=== PATIENT | male | born 1965 | race African-American/Black ===

== ENCOUNTER 2019-04-20 09:44 | Inpatient (IN) | payer OTHER ==
[2019-04-20 10:37] VITALS: BMI 28.5
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
[2019-04-20] MEDS ORDERED: METHOCARBAMOL 500 MG TABLET PO PRN (13:00)
[2019-04-20] MEDS ORDERED: MENTHOL/PHENOL 1 EACH UD MM PRN (13:00)
[2019-04-20] MEDS ORDERED: MAG HYDROX/AL HYDROX/SIMETH 30 ML UNIT-DOSE CUP PO PRN (13:00)
[2019-04-20] MEDS ORDERED: ACETAMINOPHEN 325 MG TABLET (FP) PO PRN ×2 (13:00)
[2019-04-20] MEDS ORDERED: NICOTINE POLACRILEX 2 MG GUM BUC PRN (13:00)
[2019-04-20] MEDS ORDERED: IBUPROFEN 400 MG TABLET (FP) PO PRN (13:00)
[2019-04-20] MEDS ORDERED: BISMUTH SUBSALICYLATE 524 MG/30 ML UD PO PRN (13:00)
[2019-04-20] MEDS ORDERED: MAGNESIUM CITRATE 300 ML BOTTLE PO PRN (13:00)
[2019-04-20] MEDS ORDERED: hydrOXYzine PAMOATE 25 MG CAPSULE (FP) PO PRN (13:00)
[2019-04-20] MEDS ORDERED: MAGNESIUM HYDROX 2400MG/30ML ORAL SUSPENSION 30 ML CUP PO PRN (13:00)
--- NOTE | 2019-04-20 13:41 | PN ---
[facility] Progress Note Note: this 53 years old male with xanax dependence,heroin abused,suboxone in the past, needed inpatient detox,medical managed and valium regimen I personally present,review history,physical examination by dr.Harmanpree Diaz, plan of treatment and management,i agreed and concurred that this patient need inpatient detox, valium regimen
[2019-04-20] MEDS: diazePAM 5 MG TABLET PO SCH ×2 (14:20→21:51)
[2019-04-20 14:44] LABS: ALBUMIN 3.6 g/dl (3.4-5.0); BILIRUBIN,TOTAL 0.2 mg/dL (0.2-1); CALCIUM 9.2 mg/dL (8.5-10.1); CREATININE 1.1 mg/dL (0.55-1.3); POTASSIUM 4.1 mmol/L (3.5-5.1); TOT PROT 7.3 g/dl (6.4-8.2)
[2019-04-20 14:49] LABS: HEMATOCRIT 38.7 % (35.4-49); HEMOGLOBIN 12.9 GM/dL (11.7-16.9); MCH 29.7 pg (25.7-33.7); MCHC 33.2 g/dl (32.0-35.9); MEAN CELL VOLUME 89.4 fl (80-96); MEAN PLT VOLUME 8.9 fl (7.5-11.1); PLATELET COUNT 325 K/MM3 (134-434); RBC 4.33 M/mm3 (4.00-5.60); RDW 14.6 % (11.9-15.9); WHITE BLOOD COUNT 4.8 K/mm3 (4.0-10.0)
[2019-04-20] MEDS: THIAMINE HCL 100 MG TABLET (FP) PO SCH (21:51)
[2019-04-21] MEDS: diazePAM 5 MG TABLET PO SCH ×3 (05:22→22:22)
[2019-04-21] MEDS: diazePAM 5 MG TABLET PO PRN ×2 (08:42→16:53)
[2019-04-21] MEDS: PRENATAL VITAMINS W/ FOLIC ACID TABLET (FP) PO SCH (10:31)
--- NOTE | 2019-04-21 11:10 | PN ---
S CIWA - CIWA Score Nausea/Vomitin Muscle Tremors: 2 Anxiety: 2 Agitation: 2 Paroxysmal Sweats: 1-Minimal Palms Moist Orientation: 0-Oriented Tacttile Disturbances: 1-Very Mild Itch/Numbness Auditory Disturbances: 1-Very Mild Visual Disturbances: 0-None Headache: 2-Mild CIWA-Ar Total Score: 13 [facility] Progress Note (SOAP) Subjective: alert,irritable,anxious,interrupted sleep,tremor Objective: 04/21/19 11:09 Vital Signs Temperature 97.7 F 04/21/19 09:30 Pulse Rate 53 L 04/21/19 09:30 Respiratory Rate 16 04/21/19 09:30 Blood Pressure 132/86 04/21/19 09:30 O2 Sat by Pulse Oximetry (%) Laboratory Last Values WBC 4.8 K/mm3 (4.0-10.0) 04/20/19 13:10 RBC 4.33 M/mm3 (4.00-5.60) 04/20/19 13:10 Hgb 12.9 GM/dL (11.7-16.9) 04/20/19 13:10 Hct 38.7 % (35.4-49) 04/20/19 13:10 MCV 89.4 fl (80-96) 04/20/19 13:10 MCH 29.7 pg (25.7-33.7) 04/20/19 13:10 MCHC 33.2 g/dl (32.0-35.9) 04/20/19 13:10 RDW 14.6 % (11.9-15.9) 04/20/19 13:10 Plt Count 325 K/MM3 (134-434) D 04/20/19 13:10 MPV 8.9 fl (7.5-11.1) D 04/20/19 13:10 Sodium 141 mmol/L (136-145) 04/20/19 13:10 Potassium 4.1 mmol/L (3.5-5.1) 04/20/19 13:10 Chloride 106 mmol/L (98-107) 04/20/19 13:10 Carbon Dioxide 30 mmol/L (21-32) 04/20/19 13:10 Anion Gap 5 MMOL/L (8-16) L 04/20/19 13:10 BUN 9.0 mg/dL (7-18) 04/20/19 13:10 Creatinine 1.1 mg/dL (0.55-1.3) 04/20/19 13:10 Est GFR (CKD-EPI)AfAm 88.36 04/20/19 13:10 Est GFR (CKD-EPI)NonAf 76.24 04/20/19 13:10 Random Glucose 113 mg/dL (74-106) H 04/20/19 13:10 Calcium 9.2 mg/dL (8.5-10.1) 04/20/19 13:10 Total Bilirubin 0.2 mg/dL (0.2-1) 04/20/19 13:10 AST 28 U/L (15-37) 04/20/19 13:10 ALT 43 U/L (13-61) 04/20/19 13:10 Alkaline Phosphatase 102 U/L (45-117) 04/20/19 13:10 Total Protein 7.3 g/dl (6.4-8.2) 04/20/19 13:10 Albumin 3.6 g/dl (3.4-5.0) 04/20/19 13:10 RPR Titer Nonreactive (NONREACTIVE) 04/20/19 13:10 Assessment: 04/21/19 11:10 withdrawal symptom Plan: continue detox ,valium regimen,initial glucose is 113,fasting glucose in am
--- NOTE | 2019-04-21 14:35 | EKG ---
Test Reason : Blood Pressure : / mmHG Vent. Rate : 049 BPM Atrial Rate : 049 BPM P-R Int : 198 ms QRS Dur : 084 ms QT Int : 430 ms P-R-T Axes : 045 025 019 degrees QTc Int : 388 ms SINUS BRADYCARDIA NONSPECIFIC ST AND T WAVE ABNORMALITY ABNORMAL ECG NO PREVIOUS ECGS AVAILABLE Confirmed by Shady Madrigal ([id number]) on 04/21/2019 2:34:54 PM Referred By: Confirmed By:Shady Madrigal
[2019-04-21] MEDS: THIAMINE HCL 100 MG TABLET (FP) PO SCH (22:22)
[2019-04-21] MEDS: MELATONIN 5 MG TABLETS PO PRN (22:22)
[2019-04-22] MEDS: diazePAM 5 MG TABLET PO SCH ×2 (06:12→17:36)
[2019-04-22] MEDS: PRENATAL VITAMINS W/ FOLIC ACID TABLET (FP) PO SCH (11:17)
[2019-04-22] MEDS: diazePAM 5 MG TABLET PO PRN ×2 (11:18→22:33)
--- NOTE | 2019-04-22 13:27 | PN ---
[facility] Progress Note (SOAP) Subjective: pt admitted for metamphetamine and xanax use disorders- pt states he is feeling fine today and is scheduled to go home tomorrow. O: Vital Signs - 24 hr 04/21/19 04/21/19 04/21/19 13:48 17:40 21:19 Temperature 97.3 F L 97.5 F L 97.9 F Pulse Rate 61 55 L 56 L Respiratory 18 18 20 Rate Blood Pressure 141/86 124/82 130/89 04/22/19 04/22/19 04/22/19 00:30 03:30 06:20 Temperature 97.5 F L Pulse Rate 52 L Respiratory 18 18 16 Rate Blood Pressure 109/73 04/22/19 04/22/19 09:24 13:19 Temperature 97.7 F 98.2 F Pulse Rate 58 L 60 Respiratory 18 18 Rate Blood Pressure 132/85 133/85 Laboratory Tests 04/20/19 04/20/19 04/20/19 13:10 13:10 13:10 WBC 4.8 RBC 4.33 Hgb 12.9 Hct 38.7 MCV 89.4 MCH 29.7 MCHC 33.2 RDW 14.6 Plt Count 325 D MPV 8.9 D Sodium 141 Potassium 4.1 Chloride 106 Carbon Dioxide 30 Anion Gap 5 L BUN 9.0 Creatinine 1.1 Est GFR (CKD-EPI)AfAm 88.36 Est GFR (CKD-EPI)NonAf 76.24 Random Glucose 113 H Fasting Glucose Calcium 9.2 Total Bilirubin 0.2 AST 28 ALT 43 Alkaline Phosphatase 102 Total Protein 7.3 Albumin 3.6 RPR Titer TB (QFT) Incubation TB Test (QFT) Nil 0.03 TB Test (QFT) Mitogen >10.00 TB Test (QFT) Antigen 0.09 TB Test (QFT) Negative TB Positive Criteria 04/20/19 04/22/19 13:10 07:50 WBC RBC Hgb Hct MCV MCH MCHC RDW Plt Count MPV Sodium Potassium Chloride Carbon Dioxide Anion Gap BUN Creatinine Est GFR (CKD-EPI)AfAm Est GFR (CKD-EPI)NonAf Random Glucose Fasting Glucose 79 Calcium Total Bilirubin AST ALT Alkaline Phosphatase Total Protein Albumin RPR Titer Nonreactive TB (QFT) Incubation TB Test (QFT) Nil TB Test (QFT) Mitogen TB Test (QFT) Antigen TB Test (QFT) TB Positive Criteria a/p: continue detox protocol with valium- f/u PCP, pt on no at home medical meds
[2019-04-22] MEDS: THIAMINE HCL 100 MG TABLET (FP) PO SCH (22:30)
[2019-04-22] MEDS: MELATONIN 5 MG TABLETS PO PRN (22:30)
[2019-04-23] MEDS ORDERED: diazePAM 5 MG TABLET PO ONE (06:00)
--- NOTE | 2019-04-23 08:56 | DS ---
[facility] Detox Discharge Summary Admission Date: 04/20/19 Discharge Date: 04/23/19 - History Present History: Alcohol Dependence, Cocaine Dependence, Opioid Dependence, Sedative Dependence - Physical Exam Results Vital Signs: Vital Signs Temperature 97.9 F 04/22/19 20:51 Pulse Rate 65 04/22/19 20:51 Respiratory Rate 18 04/23/19 03:30 Blood Pressure 138/87 04/22/19 20:51 O2 Sat by Pulse Oximetry (%) - Treatment Hospital Course: Detox Protocol Followed, Detoxed Safely, Responded well, Discharged Condition Good, Rehab Referral Accepted - Medication Discharge Medications: Ambulatory Orders Quetiapine Fumarate [Seroquel -] 100 mg PO HS #30 06/10/14 - Diagnosis (1) Benzodiazepine abuse Current Visit: Yes Status: Chronic (2) Methamphetamine abuse Current Visit: Yes Status: Chronic (3) Opioid abuse Current Visit: No Status: Active (4) Alcohol dependence Current Visit: Yes Status: Chronic Qualifiers: Substance use status: uncomplicated Qualified Code(s): F10.20 - Alcohol dependence, uncomplicated (5) Alcohol dependence, episodic drinking behavior Current Visit: Yes Status: Acute (6) Crack cocaine use Current Visit: No Status: Acute (7) Drug-induced mood disorder Current Visit: No Status: Acute (8) Opioid dependence Current Visit: Yes Status: Acute Qualifiers: Substance use status: uncomplicated Qualified Code(s): F11.20 - Opioid dependence, uncomplicated - AMA Did Patient Leave Against Medical Advice: No (referred to [facility] in patient rehab.)
[2019-04-23] MEDS: PRENATAL VITAMINS W/ FOLIC ACID TABLET (FP) PO SCH (10:08)
[2019-04-23 13:38] VITALS: BP 146/94; PULSE 63; TEMP 97.7
== END 2019-04-23 14:56 | disposition home or self-care (01) | DRG 773 ==
LOC: YASAS 09:44 → Y6N 13:31
PROVIDERS: ADMIT Surgery; ATTEND Surgery
PROC: HZ2ZZZZ Detoxification Services for Substance Abuse Treatment (ICD-10-PCS; principal; 2019-04-20)
DX: F10.230 Alcohol dependence with withdrawal, uncomplicated (principal); F11.20 Opioid dependence, uncomplicated; F14.20 Cocaine dependence, uncomplicated; F13.10 Sedative, hypnotic or anxiolytic abuse, uncomplicated; F15.10 Other stimulant abuse, uncomplicated; F19.24 Other psychoactive substance dependence with psychoactive substance-induced mood disorder; F41.8 Other specified anxiety disorders; F32.9 Major depressive disorder, single episode, unspecified; Z91.013 Allergy to seafood; Z91.02 Food additives allergy status
CPT/HCPCS: 36415; 80053; 82947; 85027; 86480; 86593; 93005; 93010

== ENCOUNTER 2019-04-23 14:56 | Inpatient (IN) | payer OTHER ==
[2019-04-23] MEDS ORDERED: MAGNESIUM HYDROX 2400MG/30ML ORAL SUSPENSION 30 ML CUP PO PRN (19:19)
[2019-04-23] MEDS ORDERED: LOPERAMIDE HCL 2 MG CAPSULE PO PRN (19:19)
[2019-04-23] MEDS ORDERED: MAG HYDROX/AL HYDROX/SIMETH 30 ML UNIT-DOSE CUP PO PRN (19:19)
[2019-04-23] MEDS ORDERED: ACETAMINOPHEN 325 MG TABLET (FP) PO PRN (19:19)
[2019-04-23] MEDS ORDERED: MENTHOL/PHENOL 1 EACH UD MM PRN (19:19)
[2019-04-23] MEDS ORDERED: IBUPROFEN 400 MG TABLET (FP) PO PRN (19:19)
[2019-04-23] MEDS ORDERED: MAGNESIUM CITRATE 300 ML BOTTLE PO PRN (19:19)
[2019-04-23] MEDS ORDERED: NICOTINE POLACRILEX 2 MG GUM BUC PRN (19:19)
[2019-04-23] MEDS ORDERED: P-EPHED 60MG/TRIPROLIDI 2.5MG TABLET PO PRN (19:19)
[2019-04-23] MEDS ORDERED: guaiFENesin 200 MG/10 ML 10 ML UNIT-DOSE CUPS PO PRN (19:19)
--- NOTE | 2019-04-23 19:19 | HP ---
[facility] Rehab Assess/Revision - Admission History Admitted to Rehab from: [facility] Date of Admission to Rehab: 04/23/2019 - Findings Detox History & Physical reviewed: Yes Concur with findings: Yes Comments/Additional Findings: Patient completed detox for alcoohol and Xanax use disorder. Patient stable and admitted to rehab. Inpatient Rehab Admission - Rehab Decision to Admit Inpatient rehab admission?: Yes - Initial Determination Are CD services needed?: Yes Free of communicable disease: Yes Not in need of hospitalization: Yes - Rehab Admission Criteria Previous failed treatment: Yes Poor recovery environment: Yes Comorbidities: Yes Lacks judgement: No Patient is meeting Inpatient Rehab admission criteria:: Yes
[2019-04-23] MEDS: MELATONIN 5 MG TABLETS PO PRN (22:13)
[2019-04-23] MEDS: THIAMINE HCL 100 MG TABLET (FP) PO SCH (22:14)
[2019-04-24] MEDS: PRENATAL VITAMINS W/ FOLIC ACID TABLET (FP) PO SCH (10:15)
[2019-04-24] MEDS ORDERED: COLLOIDAL OATMEAL 1 BAR EACH TP PRN (16:02)
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
[2019-04-24] MEDS: THIAMINE HCL 100 MG TABLET (FP) PO SCH (21:08)
[2019-04-24] MEDS: QUEtiapine FUMARATE 50 MG TABLET PO SCH (21:08)
[2019-04-24] MEDS: MELATONIN 5 MG TABLETS PO PRN (21:08)
[2019-04-25] MEDS: PRENATAL VITAMINS W/ FOLIC ACID TABLET (FP) PO SCH (09:52)
[2019-04-25] MEDS: QUEtiapine FUMARATE 50 MG TABLET PO SCH (22:45)
[2019-04-25] MEDS: THIAMINE HCL 100 MG TABLET (FP) PO SCH (22:45)
[2019-04-25] MEDS: MELATONIN 5 MG TABLETS PO PRN (22:46)
[2019-04-26] MEDS: PRENATAL VITAMINS W/ FOLIC ACID TABLET (FP) PO SCH (10:16)
[2019-04-26] MEDS: THIAMINE HCL 100 MG TABLET (FP) PO SCH (21:09)
[2019-04-26] MEDS: QUEtiapine FUMARATE 50 MG TABLET PO SCH (21:09)
[2019-04-26] MEDS: MELATONIN 5 MG TABLETS PO PRN (21:10)
[2019-04-27] MEDS: PRENATAL VITAMINS W/ FOLIC ACID TABLET (FP) PO SCH (10:31)
[2019-04-27] MEDS: hydrOXYzine PAMOATE 50 MG CAPSULE (FP) PO PRN (22:14)
[2019-04-27] MEDS: THIAMINE HCL 100 MG TABLET (FP) PO SCH (22:14)
[2019-04-27] MEDS: MELATONIN 5 MG TABLETS PO PRN (22:15)
[2019-04-27] MEDS: QUEtiapine FUMARATE 50 MG TABLET PO SCH (22:17)
[2019-04-28] MEDS: PRENATAL VITAMINS W/ FOLIC ACID TABLET (FP) PO SCH (10:23)
--- NOTE | 2019-04-28 13:28 | PN ---
S Progress Note Note: Patient complains of sleeping poorly despita taking Seroquel 50 mg/hs. Requests to increase Seroquel dosage to 100 mg/hs
[2019-04-28] MEDS: THIAMINE HCL 100 MG TABLET (FP) PO SCH (21:09)
[2019-04-28] MEDS: MELATONIN 5 MG TABLETS PO PRN (21:09)
[2019-04-28] MEDS: QUEtiapine FUMARATE 100 MG TABLET (FP) PO SCH (21:09)
[2019-04-29] MEDS: PRENATAL VITAMINS W/ FOLIC ACID TABLET (FP) PO SCH (10:39)
[2019-04-29] MEDS ORDERED: PT OWN MED DRAWER 7, Y5N ONE (10:50)
[2019-04-29] MEDS: QUEtiapine FUMARATE 100 MG TABLET (FP) PO SCH (21:56)
[2019-04-29] MEDS: THIAMINE HCL 100 MG TABLET (FP) PO SCH (21:56)
[2019-04-29] MEDS: MELATONIN 5 MG TABLETS PO PRN (21:57)
[2019-04-30] MEDS: PRENATAL VITAMINS W/ FOLIC ACID TABLET (FP) PO SCH (11:27)
[2019-04-30] MEDS: QUEtiapine FUMARATE 100 MG TABLET (FP) PO SCH (21:05)
[2019-04-30] MEDS: THIAMINE HCL 100 MG TABLET (FP) PO SCH (21:05)
[2019-05-01] MEDS ORDERED: PT OWN MED DRAWER 7, Y5N ONE (09:48)
[2019-05-01] MEDS: PRENATAL VITAMINS W/ FOLIC ACID TABLET (FP) PO SCH (10:03)
[2019-05-01] MEDS: THIAMINE HCL 100 MG TABLET (FP) PO SCH (22:07)
[2019-05-01] MEDS: QUEtiapine FUMARATE 100 MG TABLET (FP) PO SCH (22:07)
[2019-05-02] MEDS: PRENATAL VITAMINS W/ FOLIC ACID TABLET (FP) PO SCH (10:16)
[2019-05-02] MEDS: THIAMINE HCL 100 MG TABLET (FP) PO SCH (21:26)
[2019-05-02] MEDS: QUEtiapine FUMARATE 100 MG TABLET (FP) PO SCH (21:27)
[2019-05-03] MEDS: PRENATAL VITAMINS W/ FOLIC ACID TABLET (FP) PO SCH (10:34)
[2019-05-03] MEDS: THIAMINE HCL 100 MG TABLET (FP) PO SCH (21:57)
[2019-05-03] MEDS: QUEtiapine FUMARATE 100 MG TABLET (FP) PO SCH (21:57)
[2019-05-04] MEDS ORDERED: PT OWN MED DRAWER 7, Y5N ONE (08:36)
[2019-05-04] MEDS: PRENATAL VITAMINS W/ FOLIC ACID TABLET (FP) PO SCH (10:17)
[2019-05-04] MEDS: QUEtiapine FUMARATE 100 MG TABLET (FP) PO SCH (21:06)
[2019-05-04] MEDS: THIAMINE HCL 100 MG TABLET (FP) PO SCH (21:06)
[2019-05-05] MEDS: PRENATAL VITAMINS W/ FOLIC ACID TABLET (FP) PO SCH (09:33)
[2019-05-05] MEDS: hydrOXYzine PAMOATE 50 MG CAPSULE (FP) PO PRN (09:34)
[2019-05-05] MEDS: QUEtiapine FUMARATE 100 MG TABLET (FP) PO SCH (21:35)
[2019-05-05] MEDS: THIAMINE HCL 100 MG TABLET (FP) PO SCH (21:35)
[2019-05-06] MEDS: PRENATAL VITAMINS W/ FOLIC ACID TABLET (FP) PO SCH (10:10)
[2019-05-06] MEDS: hydrOXYzine PAMOATE 50 MG CAPSULE (FP) PO PRN (10:10)
[2019-05-06] MEDS: THIAMINE HCL 100 MG TABLET (FP) PO SCH (21:05)
[2019-05-06] MEDS: QUEtiapine FUMARATE 100 MG TABLET (FP) PO SCH (21:05)
[2019-05-06] MEDS: MELATONIN 5 MG TABLETS PO PRN (21:05)
[2019-05-07 06:55] VITALS: PULSE 64
--- NOTE | 2019-05-07 09:52 | PN ---
S Progress Note (SOAP) Subjective: Patient to be discharged tomorrow. Hospital Course: Patient attended all groups , had individual meetings with his counselor, was adherent to treatment plan and medication regimen. Also had session with psychiatric provider. He has adjusted well to treatment and continues to be motivated for change upon discharge. Objective: Physical General Appearance: appropriate HEENTM: PERRLA, Normocephalic, poor dentition Respiratory: Lungs Clear, Normal Breath Sounds Neck: Supple Cardiology: S1S2 audible, Irregularly Irregular Abdominal: +Bowel Sounds, Soft. 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, Alert, Motor Strength 02/1505/07/19 09:47 Laboratory Last Values HIV 1&2 Antibody Screen Negative 04/24/19 07:00 HIV P24 Antigen Negative 04/24/19 07:00 Vital Signs (72 hours) 05/05/19 05/05/19 05/05/19 00:30 03:30 07:04 Temperature 97.6 F Pulse Rate 65 Respiratory 18 18 18 Rate Blood Pressure 109/69 05/06/19 05/06/19 05/06/19 00:30 03:30 06:31 Temperature 97.8 F Pulse Rate 69 Respiratory 18 18 18 Rate Blood Pressure 114/87 05/07/19 05/07/19 03:30 06:54 Temperature 97.8 F Pulse Rate 64 Respiratory 18 18 Rate Blood Pressure 123/82 Assessment: Medically stable for discharge Discharge Dx: Opioid dependence ETOH dependence Cocaine Dependence Benzodiazipine Dependence 05/07/19 09:51 Plan: On-going continuation of care: Pt is moving to [place] and will have to apply for Medicaid in [place] to attend program there. A list of 12 step meetings in and around [place], [place]. was provided for patient. Patient has received medical care from Dr. Irvin at [facility] in [place]. He will see Dr. Irvin prior to going to [place]. In addition, he has refills at his pharmacy and does not need prescriptions transmitted.
[2019-05-07] MEDS: hydrOXYzine PAMOATE 50 MG CAPSULE (FP) PO PRN (09:58)
[2019-05-07] MEDS: PRENATAL VITAMINS W/ FOLIC ACID TABLET (FP) PO SCH (09:58)
[2019-05-07] MEDS: THIAMINE HCL 100 MG TABLET (FP) PO SCH (21:33)
[2019-05-07] MEDS: QUEtiapine FUMARATE 100 MG TABLET (FP) PO SCH (21:33)
[2019-05-07] MEDS: MELATONIN 5 MG TABLETS PO PRN (21:33)
[2019-05-08 06:51] VITALS: BP 117/85; TEMP 97.6
--- NOTE | 2019-05-08 07:01 | PN ---
[facility] Progress Note Note: Patient is scheduled for discharge today. Script for 30 days supply of Seroquel 100 mg/hs is electronically Transmitted to [facility] at [address] , [place] [address]
== END 2019-05-08 09:45 | disposition home or self-care (01) | DRG 772 ==
LOC: YASAS 14:56 → Y3W 14:59
PROVIDERS: ADMIT Neuromusculoskeletal Medicine & OMM; ATTEND Neuromusculoskeletal Medicine & OMM
PROC: HZ42ZZZ Group Counseling for Substance Abuse Treatment, Cognitive-Behavioral (ICD-10-PCS; principal; 2019-04-23)
DX: F11.20 Opioid dependence, uncomplicated (principal); F10.20 Alcohol dependence, uncomplicated; F13.20 Sedative, hypnotic or anxiolytic dependence, uncomplicated; F14.20 Cocaine dependence, uncomplicated; F19.282 Other psychoactive substance dependence with psychoactive substance-induced sleep disorder
CPT/HCPCS: 36415; 87389

== ENCOUNTER 2019-07-12 14:27 | Inpatient (IN) | payer OTHER ==
[2019-07-12 16:37] VITALS: BMI 28.3
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
[2019-07-12] MEDS ORDERED: MAGNESIUM CITRATE 300 ML BOTTLE PO PRN (18:38)
[2019-07-12] MEDS ORDERED: ACETAMINOPHEN 325 MG TABLET (FP) PO PRN ×2 (18:38)
[2019-07-12] MEDS ORDERED: MAG HYDROX/AL HYDROX/SIMETH 30 ML UNIT-DOSE CUP PO PRN (18:38)
[2019-07-12] MEDS ORDERED: MENTHOL/PHENOL 1 EACH UD MM PRN (18:38)
[2019-07-12] MEDS ORDERED: IBUPROFEN 400 MG TABLET (FP) PO PRN (18:38)
[2019-07-12] MEDS ORDERED: hydrOXYzine PAMOATE 25 MG CAPSULE (FP) PO PRN (18:38)
[2019-07-12] MEDS ORDERED: METHOCARBAMOL 500 MG TABLET PO PRN (18:38)
[2019-07-12] MEDS ORDERED: BISMUTH SUBSALICYLATE 524 MG/30 ML UD PO PRN (18:38)
[2019-07-12] MEDS ORDERED: MAGNESIUM HYDROX 2400MG/30ML ORAL SUSPENSION 30 ML CUP PO PRN (18:38)
[2019-07-12] MEDS ORDERED: chlordiazePOXIDE HCL 25 MG CAPSULE PO PRN (18:38)
[2019-07-12] MEDS ORDERED: cloNIDine HCL 0.1 MG TABLET PO PRN (18:38)
[2019-07-12] MEDS ORDERED: ALBUTEROL SO4 8 GM HFA INHALER IH PRN (18:44)
[2019-07-12] MEDS ORDERED: AZITHROMYCIN 250 MG TABLET PO ONE (19:00)
[2019-07-12] MEDS ORDERED: METHADONE HCL 10 MG TABLET (FOR DETOX USE ONLY) PO ONE (19:00)
[2019-07-12] MEDS: NICOTINE 21 MG/24 HOURS TOPICAL PATCH TD SCH (19:20)
[2019-07-12] MEDS ORDERED: TRIMETHOBENZAMIDE HCL 200MG/2ML INJ IM ONE (19:58)
[2019-07-12] MEDS ORDERED: TRIMETHOBENZAMIDE HCL 200MG/2ML INJ IM PRN (19:59)
[2019-07-12] MEDS: THIAMINE HCL 100 MG TABLET (FP) PO SCH (23:14)
[2019-07-12] MEDS: chlordiazePOXIDE HCL 25 MG CAPSULE PO SCH (23:14)
[2019-07-13] MEDS: chlordiazePOXIDE HCL 25 MG CAPSULE PO SCH ×4 (06:02→22:15)
[2019-07-13] MEDS ORDERED: METHADONE HCL 10 MG TABLET (FOR DETOX USE ONLY) ONE (08:50)
[2019-07-13] MEDS ORDERED: METHADONE HCL 5 MG TABLET (FOR DETOX USE ONLY) ONE (08:50)
[2019-07-13] MEDS: ONDANSETRON *ODT* 4 MG TABLET SL PRN ×2 (09:30→15:02)
[2019-07-13] MEDS ORDERED: METHADONE (DETOX) 20 MG, METHADONE (DETOX) 5 MG PO ONE (10:00)
[2019-07-13] MEDS: NICOTINE 21 MG/24 HOURS TOPICAL PATCH TD SCH (10:03)
[2019-07-13] MEDS: PRENATAL VITAMINS W/ FOLIC ACID TABLET (FP) PO SCH (10:04)
[2019-07-13] MEDS: AZITHROMYCIN 250 MG TABLET PO SCH (10:04)
--- NOTE | 2019-07-13 10:29 | PN ---
[facility] CIWA - CIWA Score Nausea/Vomitin-Mild Nausea/No Vomiting Muscle Tremors: 2 Anxiety: 2 Agitation: 2 Paroxysmal Sweats: 3 Orientation: 0-Oriented Tacttile Disturbances: 0-None Auditory Disturbances: 0-None Visual Disturbances: 0-None Headache: 0-None Present CIWA-Ar Total Score: 10 BHS COWS - Scale Resting Pulse: 0= [place] 80 or Below Sweatin= Chills/Flushing Restless Observation: 1= Difficult to Sit Still Pupil Size: 0= Normal to Room Light Bone or Joint Aches: 2= Severe Diffuse Aches Runny Nose/ Eye Tearin= Nasal Congestion GI Upset > 30mins: 2= Nausea/Diarrhea Tremor Observation of Outstretched Hands: 1= Tremor [place], Not Seen Yawning Observation: 1= 1-2x During Session Anxiety or Irritability: 1=Feels Anxious/Irritable Goose Flesh Skin: 0=Smooth Skin COWS Score: 10 [facility] Progress Note (SOAP) Subjective: nausea diarrhea body aches shakes sweats interrupted sleep body aches chills Objective: 07/13/19 10:36 Vital Signs Temperature 96.1 F L 07/13/19 09:27 Pulse Rate 57 L 07/13/19 09:27 Respiratory Rate 18 07/13/19 09:27 Blood Pressure 106/78 07/13/19 09:27 O2 Sat by Pulse Oximetry (%) pending labs aaox3 lying in bed no acute distress Assessment: 07/13/19 10:36 withdrawal sx Plan: continue detox increase fluids roxann FISHER prn
[2019-07-13 11:44] LABS: HEMATOCRIT 43.1 % (35.4-49); HEMOGLOBIN 14.8 GM/dL (11.7-16.9); MCH 30.7 pg (25.7-33.7); MCHC 34.3 g/dl (32.0-35.9); MEAN CELL VOLUME 89.4 fl (80-96); MEAN PLT VOLUME 9.4 fl (7.5-11.1); PLATELET COUNT 308 K/MM3 (134-434); RBC 4.82 M/mm3 (4.00-5.60); RDW 15.5 % (11.9-15.9); WHITE BLOOD COUNT 5.9 K/mm3 (4.0-10.0)
[2019-07-13 12:38] LABS: ALBUMIN 4.2 g/dl (3.4-5.0); BILIRUBIN,TOTAL 0.9 mg/dL (0.2-1); BLOOD UREA NITROGEN 10.7 mg/dL (7-18); CALCIUM 9.7 mg/dL (8.5-10.1); POTASSIUM 3.9 mmol/L (3.5-5.1); TOT PROT 8.1 g/dl (6.4-8.2)
[2019-07-13] MEDS: THIAMINE HCL 100 MG TABLET (FP) PO SCH (22:15)
[2019-07-13] MEDS: MELATONIN 5 MG TABLETS PO PRN (22:16)
[2019-07-14] MEDS: chlordiazePOXIDE HCL 25 MG CAPSULE PO SCH ×4 (06:41→22:42)
[2019-07-14] MEDS ORDERED: METHADONE HCL 10 MG TABLET (FOR DETOX USE ONLY) PO ONE (10:00)
[2019-07-14] MEDS: NICOTINE 21 MG/24 HOURS TOPICAL PATCH TD SCH (10:50)
[2019-07-14] MEDS: PRENATAL VITAMINS W/ FOLIC ACID TABLET (FP) PO SCH (10:50)
[2019-07-14] MEDS: AZITHROMYCIN 250 MG TABLET PO SCH (10:50)
[2019-07-14] MEDS: ONDANSETRON *ODT* 4 MG TABLET SL PRN (10:52)
[2019-07-14] MEDS ORDERED: COLLOIDAL OATMEAL 1 BAR EACH TP PRN (10:55)
--- NOTE | 2019-07-14 14:07 | PN ---
[facility] CIWA - CIWA Score Nausea/Vomitin-No Nausea/No Vomiting Muscle Tremors: 3 Anxiety: 2 Agitation: 2 Paroxysmal Sweats: 2 Orientation: 0-Oriented Tacttile Disturbances: 0-None Auditory Disturbances: 0-None Visual Disturbances: 0-None Headache: 0-None Present CIWA-Ar Total Score: 9 BHS COWS - Scale Resting Pulse: 0= [place] 80 or Below Sweatin= Chills/Flushing Restless Observation: 1= Difficult to Sit Still Pupil Size: 0= Normal to Room Light Bone or Joint Aches: 1= Mild Discomfort Runny Nose/ Eye Tearin= None GI Upset > 30mins: 0= None Tremor Observation of Outstretched Hands: 1= Tremor [place], Not Seen Yawning Observation: 1= 1-2x During Session Anxiety or Irritability: 1=Feels Anxious/Irritable Goose Flesh Skin: 0=Smooth Skin COWS Score: 6 S Progress Note (SOAP) Subjective: no more vomiting sweats shakes interrupted sleep Objective: 07/14/19 14:06 Vital Signs Temperature 96.8 F L 07/14/19 13:32 Pulse Rate 78 07/14/19 13:32 Respiratory Rate 18 07/14/19 13:32 Blood Pressure 135/91 07/14/19 13:32 O2 Sat by Pulse Oximetry (%) Laboratory Tests 07/13/19 07/13/19 07/13/19 08:50 08:50 08:50 WBC 5.9 RBC 4.82 Hgb 14.8 Hct 43.1 MCV 89.4 MCH 30.7 MCHC 34.3 RDW 15.5 Plt Count 308 MPV 9.4 Sodium 138 Potassium 3.9 Chloride 102 Carbon Dioxide 27 Anion Gap 9 BUN 10.7 Creatinine 1.0 Est GFR (CKD-EPI)AfAm 99.15 Est GFR (CKD-EPI)NonAf 85.55 Random Glucose 116 H Calcium 9.7 Total Bilirubin 0.9 AST 20 ALT 22 Alkaline Phosphatase 105 Total Protein 8.1 Albumin 4.2 RPR Titer Nonreactive labs noted aaox3 ambulating no acute distress Assessment: 07/14/19 14:06 withdrawals Plan: continue detox increase fluids
[2019-07-14] MEDS: THIAMINE HCL 100 MG TABLET (FP) PO SCH (22:42)
[2019-07-14] MEDS: MELATONIN 5 MG TABLETS PO PRN (22:42)
[2019-07-15] MEDS ORDERED: chlordiazePOXIDE HCL 10 MG CAPSULE PO PRN
[2019-07-15] MEDS: chlordiazePOXIDE HCL 10 MG CAPSULE PO SCH ×4 (05:32→22:03)
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
[2019-07-15] MEDS ORDERED: METHADONE HCL 5 MG TABLET (FOR DETOX USE ONLY) ONE (09:10)
[2019-07-15] MEDS ORDERED: METHADONE HCL 10 MG TABLET (FOR DETOX USE ONLY) ONE (09:10)
[2019-07-15] MEDS ORDERED: METHADONE (DETOX) 10 MG, METHADONE (DETOX) 5 MG PO ONE (10:00)
[2019-07-15] MEDS: ONDANSETRON *ODT* 4 MG TABLET SL PRN (10:26)
[2019-07-15] MEDS: AZITHROMYCIN 250 MG TABLET PO SCH (10:27)
[2019-07-15] MEDS: NICOTINE 21 MG/24 HOURS TOPICAL PATCH TD SCH (10:27)
[2019-07-15] MEDS: PRENATAL VITAMINS W/ FOLIC ACID TABLET (FP) PO SCH (10:27)
--- NOTE | 2019-07-15 11:14 | PN ---
S CIWA - CIWA Score Nausea/Vomitin-Mild Nausea/No Vomiting Muscle Tremors: 1-None Visible, but [place] Anxiety: 1-Mildly Anxious Agitation: 1-Slight > Activity Paroxysmal Sweats: 1-Minimal Palms Moist Orientation: 0-Oriented Tacttile Disturbances: 0-None Auditory Disturbances: 0-None Visual Disturbances: 0-None Headache: 0-None Present CIWA-Ar Total Score: 5 BHS COWS - Scale Resting Pulse: 0= [place] 80 or Below Sweatin= Chills/Flushing Restless Observation: 0= Sits Still Pupil Size: 0= Normal to Room Light Bone or Joint Aches: 1= Mild Discomfort Runny Nose/ Eye Tearin= None GI Upset > 30mins: 1= Stomach Cramp Tremor Observation of Outstretched Hands: 1= Tremor [place], Not Seen Yawning Observation: 0= None Anxiety or Irritability: 1=Feels Anxious/Irritable Goose Flesh Skin: 0=Smooth Skin COWS Score: 5 S Progress Note (SOAP) Subjective: nausea/vomiting upset stomach sweats Objective: 07/15/19 11:13 Vital Signs Temperature 97.7 F 07/15/19 09:48 Pulse Rate 62 07/15/19 09:48 Respiratory Rate 19 07/15/19 09:48 Blood Pressure 100/56 L 07/15/19 09:48 O2 Sat by Pulse Oximetry (%) Laboratory Tests 07/13/19 07/13/19 07/13/19 08:50 08:50 08:50 WBC 5.9 RBC 4.82 Hgb 14.8 Hct 43.1 MCV 89.4 MCH 30.7 MCHC 34.3 RDW 15.5 Plt Count 308 MPV 9.4 Sodium 138 Potassium 3.9 Chloride 102 Carbon Dioxide 27 Anion Gap 9 BUN 10.7 Creatinine 1.0 Est GFR (CKD-EPI)AfAm 99.15 Est GFR (CKD-EPI)NonAf 85.55 Random Glucose 116 H Calcium 9.7 Total Bilirubin 0.9 AST 20 ALT 22 Alkaline Phosphatase 105 Total Protein 8.1 Albumin 4.2 RPR Titer Nonreactive labs noted aaox3 ambulating no acute distress Assessment: 07/15/19 11:14 withdrawals Plan: continue detox zofran sl prn increase fluids
[2019-07-15] MEDS: QUEtiapine FUMARATE 100 MG TABLET (FP) PO SCH (22:03)
[2019-07-15] MEDS: THIAMINE HCL 100 MG TABLET (FP) PO SCH (22:03)
[2019-07-15] MEDS: MELATONIN 5 MG TABLETS PO PRN (22:04)
[2019-07-16] MEDS: chlordiazePOXIDE HCL 10 MG CAPSULE PO SCH ×2 (06:53→16:57)
[2019-07-16] MEDS ORDERED: ARTIFICIAL TEARS (POLYVINYL ALCOHOL) OPTH DROPS OU PRN (10:00)
[2019-07-16] MEDS ORDERED: METHADONE HCL 10 MG TABLET (FOR DETOX USE ONLY) PO ONE (10:00)
[2019-07-16] MEDS: PRENATAL VITAMINS W/ FOLIC ACID TABLET (FP) PO SCH (11:08)
[2019-07-16] MEDS: NICOTINE 21 MG/24 HOURS TOPICAL PATCH TD SCH (11:09)
--- NOTE | 2019-07-16 13:33 | PN ---
[facility] CIWA - CIWA Score Nausea/Vomitin-No Nausea/No Vomiting Muscle Tremors: 2 Anxiety: 1-Mildly Anxious Agitation: 1-Slight > Activity Paroxysmal Sweats: No Perspiration Orientation: 0-Oriented Tacttile Disturbances: 0-None Auditory Disturbances: 0-None Visual Disturbances: 0-None Headache: 0-None Present CIWA-Ar Total Score: 4 BHS COWS - Scale Resting Pulse: 0= [place] 80 or Below Sweatin= Chills/Flushing Restless Observation: 1= Difficult to Sit Still Pupil Size: 0= Normal to Room Light Bone or Joint Aches: 1= Mild Discomfort Runny Nose/ Eye Tearin= None GI Upset > 30mins: 0= None Tremor Observation of Outstretched Hands: 1= Tremor [place], Not Seen Yawning Observation: 1= 1-2x During Session Anxiety or Irritability: 1=Feels Anxious/Irritable Goose Flesh Skin: 0=Smooth Skin COWS Score: 6 [facility] Progress Note (SOAP) Subjective: sweats tired Objective: 07/16/19 13:30 Vital Signs Temperature 97.9 F 07/16/19 09:58 Pulse Rate 60 07/16/19 09:58 Respiratory Rate 18 07/16/19 09:58 Blood Pressure 108/65 07/16/19 09:58 O2 Sat by Pulse Oximetry (%) aaox3 ambulating no acute distress Assessment: 07/16/19 13:32 withdrawal sx Plan: continue detox d/c in am
[2019-07-16] MEDS: THIAMINE HCL 100 MG TABLET (FP) PO SCH (21:33)
[2019-07-16] MEDS: QUEtiapine FUMARATE 100 MG TABLET (FP) PO SCH (21:33)
[2019-07-17] MEDS ORDERED: chlordiazePOXIDE HCL 10 MG CAPSULE PO ONE (05:00)
[2019-07-17] MEDS ORDERED: METHADONE HCL 5 MG TABLET (FOR DETOX USE ONLY) PO ONE (06:00)
--- NOTE | 2019-07-17 09:44 | DS ---
[facility] Detox Discharge Summary Admission Date: 07/12/19 Discharge Date: 07/17/19 - History Present History: Alcohol Dependence, Cocaine Dependence, Opioid Dependence, Sedative Dependence - Physical Exam Results Vital Signs: Vital Signs Temperature 97.3 F L 07/17/19 07:45 Pulse Rate 51 L 07/17/19 07:45 Respiratory Rate 18 07/17/19 07:45 Blood Pressure 107/65 07/17/19 07:45 O2 Sat by Pulse Oximetry (%) Pertinent Admission Physical Exam Findings: pt arrived in withdrawals sx Laboratory Tests 07/13/19 07/13/19 07/13/19 08:50 08:50 08:50 WBC 5.9 RBC 4.82 Hgb 14.8 Hct 43.1 MCV 89.4 MCH 30.7 MCHC 34.3 RDW 15.5 Plt Count 308 MPV 9.4 Sodium 138 Potassium 3.9 Chloride 102 Carbon Dioxide 27 Anion Gap 9 BUN 10.7 Creatinine 1.0 Est GFR (CKD-EPI)AfAm 99.15 Est GFR (CKD-EPI)NonAf 85.55 Random Glucose 116 H Calcium 9.7 Total Bilirubin 0.9 AST 20 ALT 22 Alkaline Phosphatase 105 Total Protein 8.1 Albumin 4.2 RPR Titer Nonreactive pt is aaox3 ambulating no s/s withdrawal sx - Treatment Hospital Course: Detox Protocol Followed, Detoxed Safely, Responded well, Discharged Condition Good, Rehab Referral Accepted Patient has Accepted a Rehab Referral to: referral provided - Medication Discharge Medications: Ambulatory Orders Quetiapine Fumarate [Seroquel] 100 mg PO HS #30 tablet 05/08/19 - Diagnosis (1) Alcohol dependence with uncomplicated withdrawal Current Visit: Yes Status: Chronic (2) History of enucleation of right eyeball Current Visit: Yes Status: Acute (3) Insomnia secondary to depression with anxiety Current Visit: Yes Status: Acute (4) Opioid dependence with withdrawal Current Visit: Yes Status: Chronic (5) Substance induced mood disorder Current Visit: Yes Status: Acute (6) Substance-induced sleep disorder Current Visit: Yes Status: Acute (7) Uncomplicated sedative, hypnotic or anxiolytic withdrawal Current Visit: Yes Status: Acute (8) Nicotine dependence Current Visit: Yes Status: Chronic Qualifiers: Nicotine product type: cigarettes Substance use status: uncomplicated Qualified Code(s): F17.210 - Nicotine dependence, cigarettes, uncomplicated (9) Opioid abuse Current Visit: No Status: Active (10) Alcohol dependence, episodic drinking behavior Current Visit: No Status: Acute (11) Crack cocaine use Current Visit: Yes Status: Acute (12) Drug-induced mood disorder Current Visit: No Status: Acute (13) Opioid dependence Current Visit: Yes Status: Chronic Qualifiers: Substance use status: uncomplicated Qualified Code(s): F11.20 - Opioid dependence, uncomplicated (14) Substance-induced sleep disorder Current Visit: No Status: Acute (15) Alcohol dependence Current Visit: Yes Status: Chronic Qualifiers: Substance use status: uncomplicated Qualified Code(s): F10.20 - Alcohol dependence, uncomplicated (16) Benzodiazepine abuse Current Visit: Yes Status: Chronic (17) Methamphetamine abuse Current Visit: Yes Status: Chronic - AMA Did Patient Leave Against Medical Advice: No
[2019-07-17 10:23] VITALS: PULSE 65
[2019-07-17] MEDS: NICOTINE 21 MG/24 HOURS TOPICAL PATCH TD SCH (10:32)
[2019-07-17] MEDS: PRENATAL VITAMINS W/ FOLIC ACID TABLET (FP) PO SCH (10:32)
[2019-07-17] MEDS ORDERED: TOLNAFTATE 1% CREAM 15 GM TUBE TP SCH (12:30)
[2019-07-17 13:12] VITALS: BP 118/82; TEMP 97.3
== END 2019-07-17 14:14 | disposition other institution (70) | DRG 773 ==
LOC: YASAS 14:27 → Y6N 18:33
PROVIDERS: ADMIT Surgery; ATTEND Surgery
PROC: HZ2ZZZZ Detoxification Services for Substance Abuse Treatment (ICD-10-PCS; principal; 2019-07-12)
DX: F11.23 Opioid dependence with withdrawal (principal); F10.230 Alcohol dependence with withdrawal, uncomplicated; F13.230 Sedative, hypnotic or anxiolytic dependence with withdrawal, uncomplicated; F14.20 Cocaine dependence, uncomplicated; F15.10 Other stimulant abuse, uncomplicated; F17.210 Nicotine dependence, cigarettes, uncomplicated; F19.24 Other psychoactive substance dependence with psychoactive substance-induced mood disorder; F19.282 Other psychoactive substance dependence with psychoactive substance-induced sleep disorder; F51.05 Insomnia due to other mental disorder; J45.998 Other asthma; Z90.01 Acquired absence of eye; Z91.013 Allergy to seafood; Z91.02 Food additives allergy status
CPT/HCPCS: 36415; 80053; 85027; 86593; Q0162

== ENCOUNTER 2019-07-17 15:12 | Inpatient (IN) | payer OTHER ==
--- NOTE | 2019-07-17 12:19 | HP ---
[facility] Re[facility] Assess/Revision - Admission History Admitted to Rehab from[facility] - Findings Detox History & Physical reviewed: Yes Concur with findings: Yes Inpatient Rehab Admission - Rehab Decision to Admit Inpatient rehab admission?: Yes - Initial Determination Are CD services needed?: Yes Free of communicable disease: Yes Not in need of hospitalization: Yes - Rehab Admission Criteria Previous failed treatment: Yes Poor recovery environment: Yes Comorbidities: Yes Lacks judgement: Yes Patient is meeting Inpatient Rehab admission criteria:: Yes
[~2019-07-17 15:12] MED LIST: ACETAMINOPHEN 325 MG TABLET (FP) PO PRN; IBUPROFEN 400 MG TABLET (FP) PO PRN; LOPERAMIDE HCL 2 MG CAPSULE PO PRN; MAG HYDROX/AL HYDROX/SIMETH 30 ML UNIT-DOSE CUP PO PRN; MAGNESIUM CITRATE 300 ML BOTTLE PO PRN; MAGNESIUM HYDROX 2400MG/30ML ORAL SUSPENSION 30 ML CUP PO PRN; MENTHOL/PHENOL 1 EACH UD MM PRN; NICOTINE POLACRILEX 2 MG GUM BUC PRN; P-EPHED 60MG/TRIPROLIDI 2.5MG TABLET PO PRN; guaiFENesin 200 MG/10 ML 10 ML UNIT-DOSE CUPS PO PRN; hydrOXYzine PAMOATE 50 MG CAPSULE (FP) PO PRN
[2019-07-17] MEDS: THIAMINE HCL 100 MG TABLET (FP) PO SCH (21:11)
[2019-07-17] MEDS: TOLNAFTATE 1% CREAM 15 GM TUBE TP SCH (21:12)
[2019-07-18] MEDS: NICOTINE 21 MG/24 HOURS TOPICAL PATCH TD SCH (10:59)
[2019-07-18] MEDS: TOLNAFTATE 1% CREAM 15 GM TUBE TP SCH ×2 (10:59→21:19)
[2019-07-18] MEDS: PRENATAL VITAMINS W/ FOLIC ACID TABLET (FP) PO SCH (10:59)
[2019-07-18] MEDS: THIAMINE HCL 100 MG TABLET (FP) PO SCH (21:19)
[2019-07-18] MEDS: QUEtiapine FUMARATE 100 MG TABLET (FP) PO SCH (21:19)
[2019-07-19] MEDS ORDERED: PT OWN MED DRAWER 7, Y5N ONE ×3 (08:39→10:04)
[2019-07-19] MEDS: NICOTINE 21 MG/24 HOURS TOPICAL PATCH TD SCH (09:59)
[2019-07-19] MEDS: PRENATAL VITAMINS W/ FOLIC ACID TABLET (FP) PO SCH (09:59)
[2019-07-19] MEDS: TOLNAFTATE 1% CREAM 15 GM TUBE TP SCH ×2 (09:59→21:13)
[2019-07-19] MEDS: QUEtiapine FUMARATE 100 MG TABLET (FP) PO SCH (21:13)
[2019-07-19] MEDS: THIAMINE HCL 100 MG TABLET (FP) PO SCH (21:13)
[2019-07-20] MEDS: PRENATAL VITAMINS W/ FOLIC ACID TABLET (FP) PO SCH (10:11)
[2019-07-20] MEDS: NICOTINE 21 MG/24 HOURS TOPICAL PATCH TD SCH (10:11)
[2019-07-20] MEDS: TOLNAFTATE 1% CREAM 15 GM TUBE TP SCH ×2 (10:12→21:22)
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
--- NOTE | 2019-07-20 14:53 | PN ---
[facility] Progress Note Note: Patient has hx of opiod use disorder and suboxone MAT. Patient's last prescription was on 06/25/19 8mg-2mg sl bid #30/[address] Ashok Gipson at [facility]. Patient relapsed when he went to [place]. Patient would like to connect back to program and resume MAT. Completed detox 07/17/19. Urine tox + [facility]ZO only. Will await connection to program prior to starting treatment. Patient is alert and oriented x 3, in NAD and agrees with plan. Vital Signs Temperature 97.8 F 07/20/19 06:53 Pulse Rate 60 07/20/19 06:53 Respiratory Rate 18 07/20/19 06:53 Blood Pressure 142/96 07/20/19 06:53 O2 Sat by Pulse Oximetry (%)
[2019-07-20] MEDS: MELATONIN 5 MG TABLETS PO PRN (21:22)
[2019-07-20] MEDS: THIAMINE HCL 100 MG TABLET (FP) PO SCH (21:22)
[2019-07-20] MEDS: QUEtiapine FUMARATE 100 MG TABLET (FP) PO SCH (21:22)
[2019-07-21] MEDS: PRENATAL VITAMINS W/ FOLIC ACID TABLET (FP) PO SCH (10:12)
[2019-07-21] MEDS: NICOTINE 21 MG/24 HOURS TOPICAL PATCH TD SCH (10:14)
[2019-07-21] MEDS: TOLNAFTATE 1% CREAM 15 GM TUBE TP SCH ×2 (10:14→21:10)
[2019-07-21] MEDS: THIAMINE HCL 100 MG TABLET (FP) PO SCH (21:10)
[2019-07-21] MEDS: QUEtiapine FUMARATE 100 MG TABLET (FP) PO SCH (21:10)
[2019-07-21] MEDS: MELATONIN 5 MG TABLETS PO PRN (21:10)
[2019-07-21] MEDS ORDERED: DOCUSATE SODIUM 100 MG CAPSULE (FP) PO SCH (22:00)
[2019-07-22 07:04] VITALS: BP 154/92; PULSE 60; TEMP 98.3
--- NOTE | 2019-07-22 08:39 | DS ---
[facility] Rehab Discharge Summary - [facility] Rehab Discharge Summary Admission Date: 07/17/19 Discharge Date: 07/22/19 - History Present History: Alcohol dependence, Opioid dependence Pertinent Past History: this 53 years old male with heroin ,alcohol,and cocaine dependence multiple admissions in detox and rehab lactose intolerance weight loss anxiety,depression no seizure no syncope longest sobriety 4 and a half year enucleation of right eye post trauma - Discharge Physical Exam Vital Signs: Vital Signs Temperature 98.3 F 07/22/19 07:03 Pulse Rate 60 07/22/19 07:03 Respiratory Rate 18 07/22/19 07:03 Blood Pressure 154/92 07/22/19 07:03 O2 Sat by Pulse Oximetry (%) Pertinent Admission Physical Exam Findings: Physical General Appearance: No apparent distress HEENTM: enucleation of right eye, normocephalic, Respiratory: lungs clear Neck: Supple, Trachea in good position Cardiology: S1, S2 Abdominal: +Bowel Sounds, Non Tender, Flat, Soft Musculoskeletal: Joint Stiffness, CVA tenderness, 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 He was orginally seeking suboxone MAT, but was discharged before starting MAT here or confirming treatment referral. medically stable for discharge) - Medication Discharge Medications: Ambulatory Orders Quetiapine Fumarate [Seroquel] 100 mg PO HS #30 tablet 05/08/19 - Medication-Assisted Treatment (MAT) Medication-Assisted Treatment (MAT): No MAT Follow-up Referral: Patient requested suboxone MAT 2 days ago. Was referred to counselor to arrange for aftercare. Referral was made, but patient decided to go to [facility] prior to starting MAT at [facility]. - Discharge Instructions Diet, activity, other medical instructions: Diet: as tolerated Activity: as tolerated Other medical instructions: patient does not need prescriptions transmitted; advised patient to follow up with aftercare referral. Suboxone prescription not transmitted because patient decided not to go to the suboxone tx referral and MAT was not started here. - Diagnosis (1) Alcohol dependence Current Visit: Yes Status: Chronic Qualifiers: Substance use status: uncomplicated Qualified Code(s): F10.20 - Alcohol dependence, uncomplicated (2) Opioid dependence Current Visit: Yes Status: Chronic Qualifiers: Substance use status: uncomplicated Qualified Code(s): F11.20 - Opioid dependence, uncomplicated - Follow-up Referral Minutes to complete discharge: 20 - AMA Did Patient Leave Against Medical Advice: No
== END 2019-07-22 08:53 | disposition home or self-care (01) | DRG 772 ==
LOC: YASAS 15:12 → Y5N 15:13 → Y3W 17:04
PROVIDERS: ADMIT Neuromusculoskeletal Medicine & OMM; ATTEND Neuromusculoskeletal Medicine & OMM
PROC: HZ42ZZZ Group Counseling for Substance Abuse Treatment, Cognitive-Behavioral (ICD-10-PCS; principal; 2019-07-17)
DX: F11.20 Opioid dependence, uncomplicated (principal); F10.20 Alcohol dependence, uncomplicated; F13.20 Sedative, hypnotic or anxiolytic dependence, uncomplicated; F17.210 Nicotine dependence, cigarettes, uncomplicated; F39 Unspecified mood [affective] disorder; F19.24 Other psychoactive substance dependence with psychoactive substance-induced mood disorder; F19.282 Other psychoactive substance dependence with psychoactive substance-induced sleep disorder; J45.909 Unspecified asthma, uncomplicated; Z62.810 Personal history of physical and sexual abuse in childhood